=== PATIENT | female | born 1970 | race Caucasian/White ===

== ENCOUNTER → 2017-01-05 | Outpatient (CLI) | payer OTHER ==
--- NOTE | 2017-01-05 09:23 | US ---
EXAMINATION TYPE: US transvaginal DATE OF EXAM: 01/05/2017 COMPARISON: 03/24/2011 CLINICAL HISTORY: N93.9 ABN Uterine And Vaginal Bleeding. D&C 6 years ago. Vaginal bleeding since 10/20 7. 10 years ago TECHNIQUE: Transvaginal (TV) EXAM MEASUREMENTS: Uterus: 8.1 x 4.8 x 6.3 cm Endometrial Stripe: 0.7 cm Right Ovary: 4.8 x 3.3 x 3.1 cm Left Ovary: 2.6 x 1.8 x 1.8 cm 1. Uterus: Retroverted heterogeneous 2. Endometrium: appears wnl 3. Right Ovary: cystic area = 3.4 x 2.4 x 2.9cm 4. Left Ovary: appears heterogeneous 5. Bilateral Adnexa: wnl 6. Posterior cul-de-sac: small amount of free fluid IMPRESSION: 1. Heterogeneous uterine myometrium is nonspecific and occasionally BE seen with diffuse leiomyomatos is change. No focal fibroids are identified. 2. There is a 3.4 cm right ovarian cyst 3. Left ovary appears somewhat heterogeneous in echo pattern without evidence of discrete mass. Flow is documented. 4. Small amount of free fluid in the cul-de-sac.
== END | disposition home or self-care (01) ==
LOC: RADUSWWP 08:46
PROVIDERS: ATTEND Family Medicine
DX: N83.201 Unspecified ovarian cyst, right side (principal)
CPT/HCPCS: 76830

== ENCOUNTER → 2017-02-06 | Outpatient (CLI) | payer OTHER ==
--- NOTE | 2017-02-07 09:09 | MM ---
Reason for exam: screening (asymptomatic). Last mammogram was performed 5 years and 11 months ago. History: Patient had first child at age 36. Family history of breast cancer in maternal grandmother. Took hormonal contraceptives for 15 years beginning at age 15. Physical Findings: A clinical breast exam by your physician is recommended on an annual basis and results should be correlated with mammographic findings. MG Screening Mammo w CAD Bilateral CC and MLO view(s) were taken. Prior study comparison: March 24, 2011, bilateral digital screening mammo w/CAD. There are scattered fibroglandular densities. Finding: There are few typically benign round calcifications in both breasts. Developing asymmetry in the right breast subareolar level. New finding since March 24, 2011. ASSESSMENT: Incomplete: need additional imaging evaluation, BI-RAD 0 RECOMMENDATION: Special view mammogram and ultrasound of the right breast. [facility] will attempt to contact patient to return for supplemental views and ultrasound.
== END | disposition home or self-care (01) ==
LOC: RADMAMWWP 10:40
PROVIDERS: ATTEND Family Medicine
DX: Z12.31 Encounter for screening mammogram for malignant neoplasm of breast (principal)

== ENCOUNTER → 2017-02-26 | Outpatient (CLI) | payer OTHER ==
--- NOTE | 2017-02-26 14:51 | MM ---
Reason for exam: additional evaluation requested from abnormal screening. Last mammogram was performed 1 month ago. History: Patient had first child at age 36. Family history of breast cancer in maternal grandmother. Took hormonal contraceptives beginning at age 15. Physical Findings: Nurse did not find any significant physical abnormalities on exam. MG Work Up Mamm w CAD RT LM and spot compression CC view(s) were taken of the right breast. Prior study comparison: February 06, 2017, bilateral MG screening mammo w CAD. March 24, 2011, bilateral digital screening mammo w/CAD. There are scattered fibroglandular densities. The previously seen retroareolar focal asymmetry is not longer persent and relates to a skin lesion that has resolved per patient history and nursing exam. These results were verbally communicated with the patient and result sheet given to the patient on 02/26/17. ASSESSMENT: Benign, BI-RAD 2 RECOMMENDATION: Return to routine screening mammogram schedule for both breasts.
== END | disposition home or self-care (01) ==
LOC: RADMAMWWP 13:27
PROVIDERS: ATTEND Family Medicine
DX: R92.8 Other abnormal and inconclusive findings on diagnostic imaging of breast (principal)
CPT/HCPCS: 77065

== ENCOUNTER → 2017-07-10 | Outpatient (CLI) | payer OTHER ==
[2017-07-10 11:08] LABS: Basophils % (A) 0 %; Eosinophils # (A) 0.2 k/uL (0-0.7); Eosinophils % (A) 2 %; HCT 42.6 % (34.0-46.0); HGB 14.1 gm/dL (11.4-16.0); Lymphocytes # (A) 2.9 k/uL (1.0-4.8); Lymphocytes % (A) 33 %; MCH 29.1 pg (25.0-35.0); MCV 88.2 fL (80.0-100.0); Mean Platelet Volume 7.4; Monocytes # (A) 0.4 k/uL (0-1.0); Monocytes % (A) 4 %; Neutrophils # (A) 5.2 k/uL (1.3-7.7); Neutrophils % (A) 58 %; Platelet Count 321 k/uL (150-450); RBC 4.83 m/uL (3.80-5.40); RDW 13.5 % (11.5-15.5); WBC 8.9 k/uL (3.8-10.6)
== END | disposition home or self-care (01) ==
LOC: LABPAT 10:18
PROVIDERS: ATTEND Obstetrics & Gynecology
DX: Z01.812 Encounter for preprocedural laboratory examination (principal)
CPT/HCPCS: 36415; 85025

== ENCOUNTER 2017-07-12 07:37 | Day surgery (SDC) | payer OTHER ==
[2017-07-11 11:18] VITALS: BMI 34.3
--- NOTE | 2017-07-11 15:41 | P.HPOB ---
History of Present Illness H&P Date: 07/11/17 Chief Complaint: Menorrhagia and family planning Tahira is a 46-year-old female who has very heavy and continuous vaginal bleeding with passage of clots. She previously had been put on Depo-Provera to relieve the symptoms, however, she had a stroke and was taken off. Due to her risks of recurrent stroke or DVT we are moving forward with a NovaSure ablation to try and resolve her bleeding issues. Risks and benefits were discussed the patient in detail including but not limited to bladder injuries thermal injuries bleeding and infection as well as potential bowel injuries or perforation. She is also scheduled for a laparoscopic tubal occlusion I'm for family planning as NovaSure is not a form of control. Past Medical History Past Medical History: CVA/TIA, Diabetes Mellitus, Hyperlipidemia, Hypertension, Skin Disorder Additional Past Medical History / Comment(s): TIA 3 yrs ago, no residual effects. Bronchitis x1 month. Last night nasal congestion and drainage. Unknown name of skin condition, "causes problems with pores, on Doxycycline continuous for this." History of Any Multi-Drug Resistant Organisms: None Reported Past Surgical History: Section Past Anesthesia/Blood Transfusion Reactions: No Reported Reaction Past Psychological History: Anxiety, Depression Smoking Status: Current every day smoker Past Alcohol Use History: Occasional Additional Past Alcohol Use History / Comment(s): Has been smoking since 15 yrs old, 1+PPD. Past Drug Use History: None Reported - Past Family History Father Family Medical History: Cancer Additional Family Medical History / Comment(s): Lung cancer Medications and Allergies Home Medications Medication Instructions Recorded Confirmed Type Atorvastatin [Lipitor] 80 mg PO HS 07/11/17 07/11/17 History Citalopram Hydrobromide 40 mg PO 07/11/17 07/11/17 History [Citalopram HBr] Doxycycline Monohydrate 100 mg PO QAM 07/11/17 07/11/17 History [Vibramycin] Fenofibrate 160 mg PO QAM 07/11/17 07/11/17 History Glimepiride [Amaryl] 4 mg PO QAM 07/11/17 07/11/17 History amLODIPine [Norvasc] 10 mg PO QAM 07/11/17 07/11/17 History Allergies Allergy/AdvReac Type Severity Reaction Status Date / Time No Known Allergies Allergy Verified 07/11/17 11:00 Exam Osteopathic Statement: *. No significant issues noted on an osteopathic structural exam other than those noted in the History and Physical/Consult. - Vital Signs Vital signs: Intake and Output 07/11/17 07/11/17 07/11/17 06:59 14:59 22:59 Other: Weight 90.718 kg - OBG Physical Exam Breast: both: normal (no masses) Abdomen: bowel sounds normal, no diffuse tenderness, no bruit present, no guarding noted, no hepatomegaly, no splenomegaly, no mass Vulva: both: normal Vagina: normal moisture, no discharge Cervix: no lesion, no discharge Uterus: normal size, normal contour Adnexa: both: normal Anus/Rectum: normal perianal skin, no rectal mass, no hemorrhoids, heme negative
[~2017-07-12 07:37] MED LIST: DEXAMETHASONE SOD PHOSPHATE 10 MG/ML 1 ML VIAL IV ONE; LACTATED RINGERS 1,000 ML IV SCH; MIDAZOLAM 2 MG/2 ML VIAL IV PRN; ONDANSETRON 4 MG/2 ML VIAL IVP ONE; Pre Op ABX Message 1 EACH MISC MISCELLANE ONE
[2017-07-12 08:29] LABS: Glucose,Whole Blood 174 mg/dL (75-99)
[2017-07-12] MEDS ORDERED: LIDOCAINE 1% 20 ML VIAL (10MG/ML) FOR IV START INTRADERMA ONE (08:30)
[2017-07-12 08:34] VITALS: RESP 16
[2017-07-12] MEDS ORDERED: fentaNYL (PF) 50 MCG/ML 2 ML AMP ONE (08:56)
[2017-07-12] MEDS ORDERED: ROCURONIUM BROMIDE 10 MG/ML 10 ML VIAL IV ONE (08:56)
[2017-07-12] MEDS ORDERED: SUCCINYLCHOLINE CHLORIDE 100 MG/5 ML SYR IV ONE (08:56)
[2017-07-12] MEDS ORDERED: KETOROLAC 30 MG/ML 1 ML VIAL ONE (08:56)
[2017-07-12] MEDS ORDERED: MIDAZOLAM 2 MG/2 ML VIAL ONE (08:56)
[2017-07-12] MEDS ORDERED: NEOSTIGMINE 1 MG/ML 10 ML VIAL ONE (08:56)
[2017-07-12] MEDS ORDERED: LIDOCAINE 1% INJ 10MG/ML (20 ML MDV) ONE (08:56)
[2017-07-12] MEDS ORDERED: PROPOFOL 10 MG/ML 20 ML VIAL IV ONE (08:56)
[2017-07-12] MEDS ORDERED: GLYCOPYRROLATE 0.2 MG/ML 2 ML VIAL ONE (08:56)
[2017-07-12] MEDS ORDERED: BUPIVACAINE (PF) 0.5% 30 ML VIAL SQ ONE (09:14)
--- NOTE | 2017-07-12 09:38 | P.OP ---
Date of Procedure: 07/12/17 Preoperative Diagnosis: Menorrhagia and family planning Postoperative Diagnosis: Same Procedure(s) Performed: Laparoscopic tubal ligation with Filshie clips and D&C with hysteroscopy and NovaSure Anesthesia: TALISHA Surgeon: Darrick Powell Estimated Blood Loss (ml): 5 Urine output (ml): 10 Pathology: other (Uterine curettings) Condition: stable Disposition: same day Operative Findings: Normal uterus, tubes, ovaries. Incidental finding of multiple scars and lesions across abdomen from her skin disease Description of Procedure: Patient was taken to the operating suite where a general anesthetic was found be adequate. She was prepped and draped in the normal sterile fashion and placed in the dorsal lithotomy position. Initially a speculum was inserted into the vagina and the anterior lip cervix identified and grasped with an Allis clamp. Cervix was then dilated and sounded to 7 cm and a manipulator was inserted without difficulty. Red rubber catheter was then used to drain bladder of urine and instruments were then removed from the vagina area attention was turned to abdominal portion procedure and gloves were changed. Initially 2 mL of quarter percent Marcaine was injected just to the side of her umbilicus through her old incision and through this anesthetic a 5 mm skin incision was made. Through this incision under direct visualization with an optical trocar and sleeve the camera was inserted. Once peritoneal placement was assured gas was allowed to fully insufflate the abdomen and patient was then placed in steep Trendelenburg position. A second 8 mm skin incision was then made in the midline 3 cm above the pubic symphysis. Through this opening a 8 mm trocar and sleeve were inserted under direct visualization. Once this was accomplished uterus was elevated and fallopian tubes identified first the right tube than the left tube were occlusion with Filshie clips and no bleeding is noted from the mesosalpinx. No other gross findings within the pelvis are noted. Instruments were then removed and gas was allowed to expel from the abdomen. 5 deep breaths were provided during this process. Once accomplished 4 -0 Vicryl was used to close incision subcuticularly and the remaining 8 mL of quarter percent Marcaine was injected around these incisions. Attention was then returned to the vagina and manipulator was removed and weighted speculum was reinserted. Single-tooth tenaculum was then used to grasp the anterior lip of the cervix and cervix was fully dilated. Camera was then inserted no pathologies noted therefore camera was removed and sharp curettings of the endometrium were obtained. Once this was completed NovaSure system was inserted with a length of 4 and a width of 2.5 was tested and enabled and burned. At the conclusion the burn instrument was removed and camera was reinserted with excellent burn noted. All instruments were then removed. Sponge, lap, needle counts were all correct 2. Patient was then taken to the recovery room in stable and satisfactory condition. Plan - Discharge Summary New Discharge Prescriptions: New Ibuprofen [Motrin] 600 mg PO Q6HR PRN #30 tab PRN Reason: Pain HYDROcodone/APAP 5-325MG [[place] 5-325] 1 tab PO Q4HR PRN 3 Days #18 tab PRN Reason: Pain No Action Glimepiride [Amaryl] 4 mg PO QAM amLODIPine [Norvasc] 10 mg PO QAM Fenofibrate 160 mg PO QAM Atorvastatin [Lipitor] 80 mg PO HS Doxycycline Monohydrate [Vibramycin] 100 mg PO QAM Citalopram Hydrobromide [Citalopram HBr] 40 mg PO HS Discharge Medication List Atorvastatin [Lipitor] 80 mg PO HS 07/11/17 [History] Citalopram Hydrobromide [Citalopram HBr] 40 mg PO HS 07/11/17 [History] Doxycycline Monohydrate [Vibramycin] 100 mg PO QAM 07/11/17 [History] Fenofibrate 160 mg PO QAM 07/11/17 [History] Glimepiride [Amaryl] 4 mg PO QAM 07/11/17 [History] amLODIPine [Norvasc] 10 mg PO QAM 07/11/17 [History] HYDROcodone/APAP 5-325MG [[place] 5-325] 1 tab PO Q4HR PRN 3 Days #18 tab [Rx] Ibuprofen [Motrin] 600 mg PO Q6HR PRN #30 tab 07/12/17 [Rx] Follow up Appointment(s)/Referral(s): Darrick Powell DO [Doctor of Osteopathic Medicine] - 2 Weeks Activity/Diet/Wound Care/Special Instructions: No heavy lifting, limit stairs and driving and pelvic rest. If any high temperatures, heavy bleeding, or severe pain call my office Discharge Disposition: HOME SELF-CARE
[2017-07-12] MEDS: HYDROmorphone 0.5 MG/0.5 ML SYRINGE IVP PRN ×3 (09:50→10:07)
[2017-07-12 09:52] VITALS: TEMP 97
[2017-07-12 09:56] LABS: Glucose,Whole Blood 185 mg/dL (75-99)
[2017-07-12] MEDS ORDERED: diphenhydrAMINE 50 MG/ML 1 ML VIAL IVP ONE (10:16)
[2017-07-12] MEDS ORDERED: Acetaminophen-Codeine 300-30mg TAB PO ONE (11:05)
[2017-07-12 11:11] VITALS: BP 100/67; PULSE 76
== END 2017-07-12 11:40 | disposition home or self-care (01) ==
LOC: OR 07:37
PROVIDERS: ATTEND Obstetrics & Gynecology
DX: Z30.2 Encounter for sterilization (principal); N84.0 Polyp of corpus uteri; N87.1 Moderate cervical dysplasia; F17.210 Nicotine dependence, cigarettes, uncomplicated; I10 Essential (primary) hypertension; E78.5 Hyperlipidemia, unspecified; F41.9 Anxiety disorder, unspecified; F32.9 Major depressive disorder, single episode, unspecified; E11.9 Type 2 diabetes mellitus without complications; Z86.73 Personal history of transient ischemic attack (TIA), and cerebral infarction without residual deficits; Z79.82 Long term (current) use of aspirin; Z79.899 Other long term (current) drug therapy; Z79.84 Long term (current) use of oral hypoglycemic drugs; Z79.2 Long term (current) use of antibiotics
CPT/HCPCS: 81025; 88305; 58671; 58563; J2250; J1200; J1100; J2710; J2405; J2001; J3010; J1885; J0330; J2704; J1170

== ENCOUNTER 2017-12-17 06:52 | Day surgery (SDC) | payer OTHER ==
[2017-12-13 11:52] VITALS: BMI 36.0
--- NOTE | 2017-12-17 06:35 | P.GSHP ---
History of Present Illness H&P Date: 12/17/17 CHIEF COMPLAINT: History of epidermoid cyst. HISTORY OF PRESENT ILLNESS: Joanna Alberts is a 47 years-old female who reports chronic skin infections with hidradenitis of the skin. She does take doxycycline. She has had ruptures along her back, which has severe scarring of her upper back. She now reports new growth along the left posterior thigh, one of the distal and one is proximal thigh. She is seeking excision. She also smokes. PAST MEDICAL HISTORY: Please see list. PAST SURGICAL HISTORY: Please see list. MEDICATIONS: Please see list. ALLERGIES: Please see list. SOCIAL HISTORY: No illicit drug use FAMILY HISTORY: No reports of Crohn disease or ulcerative colitis. REVIEW OF ORGAN SYSTEMS: CONSTITUTIONAL: No reports of fevers or chills. GI: Denies any blood in stools or constipation. PHYSICAL EXAM: VITAL SIGNS: Stable Patient is a 47-year-old female. Skin: 4 cm cyst along the distal posterior left thigh in subcutaneous tissue and a 2 cm cyst along the proximal posterior thigh. GENERAL: Well developed and in no acute distress. Pleasant. HEENT: No sclera icterus. Extraocular movements grossly intact. Moist buccal mucosa. Head is atraumatic, normocephalic. Hears conversational speech. No nasal drainage. NECK: Supple without lymphadenopathy. No JV distention. CHEST: Non-labored respirations and equal bilateral excursions. CARDIOVASCULAR: Regular rate and rhythm. Palpable 2+ radial pulses. ABDOMEN: Soft. Non-tender. Nondistended. MUSCULOSKELETAL: No clubbing, cyanosis or edema. NEUROLOGIC: No focal or lateralizing signs. PSYCH: Appropriate affect. Alert and oriented to person, place and time. ASSESSMENT: 1. History of epidermoid cyst, x2. PLAN: 1. I have recommended excision of left posterior thigh cyst x2 of 4 cm and 2 cm sequentially. 2. Post op wound care instructions were reviewed as well. Past Medical History Past Medical History: CVA/TIA, Diabetes Mellitus, Hyperlipidemia, Hypertension, Skin Disorder Additional Past Medical History / Comment(s): cysts left thigh,hx TIA 2014-no residual,bronchitis,skin condition causes problems with pores History of Any Multi-Drug Resistant Organisms: None Reported Past Surgical History: Section, Tubal Ligation, Uterine Ablation Past Anesthesia/Blood Transfusion Reactions: No Reported Reaction Additional Past Anesthesia/Blood Transfusion Reaction / Comment(s): no hx blood transfusion Smoking Status: Current every day smoker - Past Family History Father Family Medical History: Cancer Additional Family Medical History / Comment(s): lung Medications and Allergies Home Medications Medication Instructions Recorded Confirmed Type Atorvastatin [Lipitor] 80 mg PO HS 07/11/17 12/13/17 History Citalopram Hydrobromide 40 mg PO 07/11/17 12/13/17 History [Citalopram HBr] Doxycycline [Vibramycin] 100 mg PO [facility] 07/11/17 12/13/17 History Fenofibrate 160 mg PO [facility] 07/11/17 12/13/17 History Glimepiride [Amaryl] 4 mg PO [facility] 07/11/17 12/13/17 History amLODIPine [Norvasc] 10 mg PO [facility] 07/11/17 12/13/17 History Aspirin 325 mg PO DAILY 12/13/17 12/13/17 History Allergies Allergy/AdvReac Type Severity Reaction Status Date / Time No Known Allergies Allergy Verified 12/13/17 11:24
[~2017-12-17 06:52] MED LIST changes: +HYDROmorphone 0.5 MG/0.5 ML SYRINGE IVP PRN; -LACTATED RINGERS 1,000 ML IV SCH; +SCOPOLAMINE 1.5MG/72HR PATCH TRANSDERM ONE; +ceFAZolin IN SWFI 2 GM/20 ML SYRINGE IVP STA
[2017-12-17 08:03] VITALS: RESP 18; TEMP 97.6
[2017-12-17] MEDS: LACTATED RINGERS 1,000 ML IV SCH ×2 (08:15→08:47)
[2017-12-17 08:17] LABS: Glucose,Whole Blood 162 mg/dL (75-99)
[2017-12-17] MEDS ORDERED: fentaNYL (PF) 50 MCG/ML 2 ML AMP ONE (08:48)
[2017-12-17] MEDS ORDERED: PROPOFOL 10 MG/ML 20 ML VIAL IV ONE (08:48)
[2017-12-17] MEDS ORDERED: MIDAZOLAM 2 MG/2 ML VIAL ONE (08:48)
[2017-12-17] MEDS ORDERED: BUPIVACAIN-EPI 0.25%-1:200,000 30 ML VIAL SQ ONE (09:10)
[2017-12-17] MEDS ORDERED: LACTATED RINGERS 1,000 ML IV ONE (09:36)
--- NOTE | 2017-12-17 10:01 | P.OP ---
Date of Procedure: 12/17/17 Description of Procedure: SURGEON: JOANNA SAMS MD MERCHANDISER: NONE. PREOPERATIVE DIAGNOSES: 1. Left posterior thigh mass x 2 POSTOPERATIVE DIAGNOSES: 1. Left posterior thigh mass, superior and subcutaneous 2 cm 2. Left posterior thigh mass, inferior and subfascial 4 cm OPERATION: 1. Excision of left posterior thigh mass, superior and subcutaneous, 2 cm 2. Intermediate closure left posterior thigh incision superior and subcutaneous , 4 x 2 cm 3. Excision of left posterior thigh mass, inferior and subfascial, 4 cm 4. Complex closure of left left posterior thigh incision, inferior 8 cm x 3 cm ANESTHESIA: MAC with local ESTIMATED BLOOD LOSS: 10 mL. SPECIMENS REMOVED: 1. Left posterior thigh mass, superior 2. Left posterior thigh mass, inferior, suture - short lateral and long superior COMPLICATIONS: None. INDICATIONS: The patient is a 47-year-old female who presents with left posterior thigh subcutaneous tumors. Surgical options, including excision was discussed. Benefits and risks were described. Informed consent was obtained. DESCRIPTION OF PROCEDURE: Patient was brought into the operating room, laid in prone position. After adequate IV sedation, the left thigh was prepped and draped in standard sterile fashion using ChloraPrep. A timeout protocol was confirmed with the surgical team regarding patient's name including procedures to be performed. Preoperative medications was administered. Next, a local field block was administered. The left posterior thigh inferior mass was measured using a ruler with borders marked with indelible marker. An elliptical incision of 8 x 3 cm in size was placed into the dermis followed by circumferential dissection using electro-Bovie cautery into the subcutaneous tissue into the fascia. The mass extended to the deep fascia and excised. Hemostasis was checked with electrocautery. The wound was closed in multiple layers using flaps including 0 Vicryl for the deep subcutaneous tissue. 3-0 Vicryl was placed interrupted along the deep dermis. The skin was closed using 4-0 Monocryl. Exofin system including liquid glue and tape was used as the final fourth layer. The skin was cleansed. Optifoam dressing was placed. Attention was brought to the superior medial posterior thigh tumor. A local field block was administered. The left posterior thigh superior mass was measured using a ruler with borders marked with indelible marker. An elliptical incision of 4 x 2 cm in size was placed into the dermis followed by circumferential dissection using electro-Bovie cautery into the subcutaneous tissue. Hemostasis was checked with electrocautery. The wound was closed with 0 Vicryl for the subcutaneous tissue. The skin was closed using 4-0 Monocryl. Exofin system including liquid glue and tape was used as the final fourth layer. The skin was cleansed. Optifoam dressing was placed. At the end of the procedure, needle, sponge, and instrument count had been verified correct by the surgical tech. The patient was taken to the postanesthesia care unit in stable condition. FINDINGS: 1. Left posterior thigh mass inferior and superior mass Plan - Discharge Summary New Discharge Prescriptions: New Ibuprofen [Motrin] 600 mg PO Q8HR PRN #30 tab PRN Reason: Pain No Action Glimepiride [Amaryl] 4 mg PO QAM amLODIPine [Norvasc] 10 mg PO QAM Fenofibrate 160 mg PO QAM Atorvastatin [Lipitor] 80 mg PO HS Doxycycline [Vibramycin] 100 mg PO QAM Citalopram Hydrobromide [Citalopram HBr] 40 mg PO HS Aspirin 325 mg PO DAILY Discharge Medication List Atorvastatin [Lipitor] 80 mg PO HS 07/11/17 [History] Citalopram Hydrobromide [Citalopram HBr] 40 mg PO HS 07/11/17 [History] Doxycycline [Vibramycin] 100 mg PO QAM 07/11/17 [History] Fenofibrate 160 mg PO QAM 07/11/17 [History] Glimepiride [Amaryl] 4 mg PO QAM 07/11/17 [History] amLODIPine [Norvasc] 10 mg PO QAM 07/11/17 [History] Aspirin 325 mg PO DAILY 12/13/17 [History] Ibuprofen [Motrin] 600 mg PO Q8HR PRN #30 tab 12/17/17 [Rx] Follow up Appointment(s)/Referral(s): Joanna Sams MD [STAFF PHYSICIAN] - 12/25/17 Patient Instructions/Handouts: *Surgery [facility] - (Anesthesia) Discharge Instructions Outpatient Surgery, Dermal Cyst Excision (DC) Activity/Diet/Wound Care/Special Instructions: May shower. No bath tub soaks. Do not remove dressing until seen by doctor. Discharge Disposition: HOME SELF-CARE
[2017-12-17 10:16] VITALS: BP 100/64; PULSE 80
== END 2017-12-17 10:30 | disposition home or self-care (01) ==
LOC: OR 06:52
PROVIDERS: ATTEND Surgery Plastic and Reconstructive Surgery
DX: L72.0 Epidermal cyst (principal); L73.2 Hidradenitis suppurativa; I10 Essential (primary) hypertension; E78.49 Other hyperlipidemia; E11.9 Type 2 diabetes mellitus without complications; Z79.84 Long term (current) use of oral hypoglycemic drugs; Z86.73 Personal history of transient ischemic attack (TIA), and cerebral infarction without residual deficits; Z79.2 Long term (current) use of antibiotics; Z79.82 Long term (current) use of aspirin; Z79.899 Other long term (current) drug therapy; F17.200 Nicotine dependence, unspecified, uncomplicated
CPT/HCPCS: 13121; 13122; 11402; 12032; 81025; 88304; 11404; J2250; J1100; J2405; J3010; J2704; J0690

== ENCOUNTER → 2019-11-17 | Outpatient (CLI) | payer OTHER ==
[2019-11-17 08:35] LABS: Basophils % (A) 0 %; Eosinophils # (A) 0.2 k/uL (0-0.7); Eosinophils % (A) 2 %; HCT 43.4 % (34.0-46.0); HGB 14.3 gm/dL (11.4-16.0); Lymphocytes # (A) 3.8 k/uL (1.0-4.8); Lymphocytes % (A) 42 %; Mean Platelet Volume 7.7; Monocytes # (A) 0.4 k/uL (0-1.0); Monocytes % (A) 4 %; Neutrophils # (A) 4.4 k/uL (1.3-7.7); Neutrophils % (A) 49 %; Platelet Count 329 k/uL (150-450); RBC 4.77 m/uL (3.80-5.40); RDW 12.3 % (11.5-15.5); WBC 8.9 k/uL (3.8-10.6)
--- NOTE | 2019-11-17 10:19 | XR ---
EXAMINATION TYPE: XR chest 2V DATE OF EXAM: 11/17/2019 COMPARISON: None INDICATION: Checkup TECHNIQUE: Frontal and lateral views of the chest are obtained. FINDINGS: The heart size is normal. The pulmonary vasculature is normal. The lungs are clear. IMPRESSION: 1. No acute pulmonary process.
[2019-11-17 15:04] LABS: Chol/HDL Ratio 4.75
[2019-11-17 16:00] LABS: Hepatitis A Antibody IgM Non-Reactive (Non-Reactive); Hepatitis B Core IgM Non-Reactive (Non-Reactive); Hepatitis B Surface Antigen Non-Reactive (Non-Reactive); Hepatitis C IgG Antibody Non-Reactive (Non-Reactive)
== END | disposition home or self-care (01) ==
LOC: LABWHC1 07:50
PROVIDERS: ATTEND Dermatology
DX: L73.2 Hidradenitis suppurativa (principal); L30.4 Erythema intertrigo
CPT/HCPCS: 36415; 71046; 80061; 80074; 82565; 82947; 83615; 84450; 84460; 84520; 85025; 86480

== ENCOUNTER → 2020-02-05 | Outpatient (CLI) | payer OTHER ==
--- NOTE | 2020-02-06 09:19 | MM ---
Reason for exam: screening (asymptomatic). Last mammogram was performed 2 years and 11 months ago. History: Patient had first child at age 36. Family history of breast cancer in maternal grandmother. Took hormonal contraceptives beginning at age 15. Physical Findings: A clinical breast exam by your physician is recommended on an annual basis and results should be correlated with mammographic findings. MG Diagnostic Mammo w CAD SAM Bilateral CC and MLO view(s) were taken. Prior study comparison: February 26, 2017, right breast MG work up mamm w CAD RT. February 06, 2017, bilateral MG screening mammo w CAD. There are scattered fibroglandular densities. There are benign appearing round dystrophic calcifications bilaterally. There is no discrete abnormality. Stable lymph nodes redemonstrated. These results were verbally communicated with the patient and result sheet given to the patient on 02/05/20. ASSESSMENT: Benign, BI-RAD 2 RECOMMENDATION: Routine screening mammogram of both breasts in 1 year.
== END | disposition home or self-care (01) ==
LOC: RADMAMWWP 14:50
PROVIDERS: ATTEND Family Medicine
DX: N64.52 Nipple discharge (principal)
CPT/HCPCS: 77066

== ENCOUNTER → 2021-02-14 | Outpatient (CLI) | payer OTHER ==
[2021-02-14 15:43] LABS: Basophils # (A) 0.01 X 10*3/uL (0.00-0.10); Basophils % (A) 0.2 %; Eosinophils # (A) 0.14 X 10*3/uL (0.04-0.35); Eosinophils % (A) 2.2 %; HCT 46.5 % (37.2-46.3); HGB 15.2 g/dL (12.0-15.0); Lymphocytes # (A) 3.03 X 10*3/uL (0.90-5.00); Lymphocytes % (A) 48.6 %; MCH 30.6 pg (27.0-32.0); MCHC 32.7 g/dL (32.0-37.0); MCV 93.8 fL (80.0-97.0); Mean Platelet Volume 10.9 fL (9.5-12.2); Monocytes # (A) 0.44 X 10*3/uL (0.20-1.00); Monocytes % (A) 7.1 %; Neutrophils % (A) 41.7 %; Platelet Count 313 X 10*3/uL (140-440); RBC 4.96 X 10*6/uL (4.10-5.20); RDW 12.4 % (11.5-14.5); WBC 6.23 X 10*3/uL (4.50-10.00)
[2021-02-14 16:40] LABS: ALT 22 U/L (8-44); AST 17 U/L (13-35); LDH 207 U/L (120-246)
== END | disposition home or self-care (01) ==
LOC: LABWHC1 07:43
PROVIDERS: ATTEND Dermatology
DX: L73.2 Hidradenitis suppurativa (principal); Z79.899 Other long term (current) drug therapy; L30.1 Dyshidrosis [pompholyx]
CPT/HCPCS: 36415; 83615; 84450; 84460; 85025; 86480

== ENCOUNTER → 2021-06-14 | Outpatient (CLI) | payer BC ==
--- NOTE | 2021-06-15 05:45 | MR ---
EXAMINATION TYPE: MR knee LT wo con DATE OF EXAM: 06/14/2021 COMPARISON: None HISTORY: PAIN IN LEFT KNEE Multiplanar multiecho imaging of the left knee performed without contrast. There is some hypertrophic spurring of the femoral and tibial condyles. The anterior and posterior cruciate ligaments are intac t. There is small knee joint effusion. The collateral ligaments are intact. The medial and lateral me nisci appear fairly normal. There are small areas of subchondral edema in the medial femoral condyle. No fracture seen. No evidence of a soft tissue mass. IMPRESSION: No evidence of ligament or tendon tear. Mild knee joint effusion. Mild osteoarthritis in the medial j oint space with minimal subchondral degenerative cyst formation in the medial femoral condyle. No navneet dence of any significant meniscal tear. No fracture.
== END | disposition home or self-care (01) ==
LOC: RADMRIMAIN 10:00
PROVIDERS: ATTEND Physician Assistant Medical
DX: M17.12 Unilateral primary osteoarthritis, left knee (principal)